=== PATIENT | male | born 1955 | race Caucasian/White ===

== ENCOUNTER 2018-11-06 16:26 | Emergency (ER) | payer MEDICARE ==
[~2018-11-06] VITALS: Ht 167.6 cm; Wt 73.3 kg
[2018-11-06 17:03] VITALS: Ht 167.6 cm; Wt 73.3 kg
[2018-11-06] MEDS ORDERED: METHYLPREDNISOLONE 125 MG INJ IV STA (17:50)
[2018-11-06] MEDS ORDERED: IPRATROPIUM (NEB) 0.5 MG/2.5 ML AMP NEB STA (17:50)
[2018-11-06] MEDS ORDERED: ALBUTEROL 0.083% (NEB) 2.5 MG/3 ML AMP NEB STA (17:50)
[2018-11-06] MEDS ORDERED: METHYLPREDNISOLONE 125 MG INJ IM ONE (18:30)
[2018-11-06] MEDS ORDERED: PRED20TA PO (19:37)
--- NOTE | 2018-11-06 19:43 | ERD ---
ER Documentation Chief Complaint Chief Complaint SOB; HX OF COPD, EMPHYSEMA HPI 63-year-old homeless male with past medical history of COPD and emphysema, active daily smoker who presents with 3-day complaint of worsening shortness of breath and dyspnea as well as chest tightness. Typically has dry chronic cough and now cough is productive of thick yellow sputum. Patient states he is currently homeless and lives in his car and recently drove up to [facility] from [place]. Lives in [place] and was supposed to return today but did not have enough money. He otherwise denies fever, chills, nausea or vomiting, abdominal pain, urinary symptoms. Does not currently have a PMD in [place] but states he does see a doctor in [place]. He denies any alcohol or drug use. ROS All systems reviewed and are negative except as per history of present illness. Medications Home Meds Active Scripts Azithromycin* (Zithromax*) 500 Mg Tablet, 500 MG PO DAILY for 3 Days, TAB Prov:JEUDINE,GETHO PA-C 11/06/18 Prednisone* (Prednisone*) 20 Mg Tab, 40 MG PO DAILY for 5 Days, TAB Prov:JEUDINE,GETHO PA-C 11/06/18 Allergies Allergies: Coded Allergies: meperidine (Verified Allergy, Mild, 11/06/18) prednisone (Verified Allergy, Mild, 11/06/18) Uncoded Allergies: SULFA (Allergy, Unknown, 11/06/18) PMhx/Soc History of Surgery: Yes (hernia) Hx Respiratory Disorders: Yes (emphysema) Hx Miscellaneous Medical Probl: Yes Hx Alcohol Use: No Hx Substance Use: No Hx Tobacco Use: Yes Smoking Status: Current every day smoker FmHx Family History: No diabetes, No coronary disease, No other Physical Exam Vitals Vital Signs Date Temp Pulse Resp B/P (MAP) Pulse Ox O2 O2 Flow FiO2 Time Delivery Rate 11/06/18 98.1 98 22 129/81 95 Room Air 20:03 (97) 11/06/18 92 20 97 Nasal 3.0 18:18 Cannula 11/06/18 76 100 Nasal 3.0 17:44 Cannula 11/06/18 98.2 89 36 116/56 97 17:03 (76) Physical Exam I have reviewed the triage vital signs. Const: thin, desheveled, ill appearing, appears older then stated age, mild distress Eyes: PERRL, no conjunctival injection HENT: NCAT, Neck supple without meningismus CV: RRR, Warm, well-perfused extremities RESP: Prominent wheezing, rhonci to b/l lung rodriguez, no rales, normal effort, GI: soft, non-tender, non-distended, no masses MSK: No gross deformities appreciated Skin: Warm, dry. No rashes Neuro: grossly non focal Psych: Appropriate mood and affect. Results 24 hrs Current Medications Medications Dose Sig/Anselmo Start Time Status Last (Trade) Ordered Route PRN Stop Time Admin Dose Reason Admin Albuterol 5 mg ONCE STAT 11/06/18 DC 11/06/18 (Proventil NEB 17:50 11/06/18 18:24 0.083% (Neb)) 18:04 Ipratropium 1.5 mg ONCE STAT 11/06/18 DC 11/06/18 [place] NEB 17:50 11/06/18 18:23 (Atrovent 18:04 0.02% (Neb)) 125 mg ONCE STAT 11/06/18 DC Methylprednis IV 17:50 11/06/18 olone Sodium 18:17 Succinate (Solu-Medrol) 125 mg ONCE ONCE 11/06/18 DC 11/06/18 Methylprednis IM 18:30 11/06/18 18:31 olone Sodium 18:31 Succinate (Solu-Medrol) Procedures/MDM 63-year-old male with long-standing COPD who presents with + cough and sputum change + wheezing + SOB in prior smoker w known COPD history c/w COPD exacerbation. The patient appears to be suffering from a moderate exacerbation of COPD. Pt has never been intubated for COPD exacerbation. Documented allergy to prednisone. When asked what type of reaction he had to prednisone patient states he had bone pain. He denies any airway compromise or angioedema associated with prednisone use. Explained to him in detail that he will be discharged with a short course of prednisone that he should experience any airway compromise or have any allergic type reaction while taking prednisone that he should immediately stop and presented to ED. Patient resting full understanding. Based on the history, exam, and any testing done, I dont suspect any other cause emergency cause of respiratory distress, such as, but not limited to, pneumonia, coronary syndrome, congestive heart failure, pulmonary embolism, or pneumothorax. ED course: Cxr without evidence of pneumonia EKG SR 80 BPM without ischemic changes Plan: Treated the patient with bronchodilators, steroids, then reassessed. On reassessment with reported improvement in symptoms. Less wheezing on exam. oxygen saturations stable. He appears comfortable and states he wants to go home. Will discharge with short course of steroids, Azithromycin,continue to utilized his inhalers, PMD follow up Strict return precautions explained to patient in detail DISPOSITION PLAN: We discussed follow up with the patient's primary care doctor within 24 to 48 hours. Patient counseled regarding my diagnostic impression and care plan. Prior to discharge all questions answered. Pt agrees with treatment plan and understands strict return precautions. Precautionary instructions provided including instructions to return to the ER if not improving or for any worsening or changing symptoms or concerns. Departure Diagnosis: Primary Impression: COPD with exacerbation Condition: Stable Patient Instructions: Care for COPD, Treatments for COPD, Copd Flare Referrals: [facility] YOU HAVE RECEIVED A MEDICAL SCREENING EXAM AND THE RESULTS INDICATE THAT YOU DO NOT HAVE A CONDITION THAT REQUIRES URGENT TREATMENT IN THE EMERGENCY DEPARTMENT. FURTHER EVALUATION AND TREATMENT OF YOUR CONDITION CAN WAIT UNTIL YOU ARE SEEN IN YOUR DOCTORS OFFICE WITHIN THE NEXT 1-2 DAYS. IT IS YOUR RESPONSIBILITY TO MAKE AN APPOINTMENT FOR FOLOW-UP CARE. IF YOU HAVE A PRIMARY DOCTOR --you should call your primary doctor and schedule an appointment IF YOU DO NOT HAVE A PRIMARY DOCTOR YOU CAN CALL OUR PHYSICIAN REFERRAL HOTLINE AT IF YOU CAN NOT AFFORD TO SEE A PHYSICIAN YOU CAN CHOSE FROM THE FOLLOWING [facility] [address] [facility]. [facility] [address] [facility]. [facility] [address] [facility] [facility] [address] [facility] [facility] [address] [facility]. [facility]. [address] Additional Instructions: Call your primary care doctor TOMORROW for an appointment during the next 2-3 days.See the doctor sooner or return here if your condition worsens before your appointment time. DEEPTI HILL PA-C Nov 06, 2018 19:43
[2018-11-06] MEDS ORDERED: AZIT500T3 PO (19:44)
[2018-11-06 20:03] VITALS: BP 129/81; PULSE 98; RESP 22
== END 2018-11-06 20:05 | disposition home or self-care (01) ==
LOC: FTE 16:26
DX: J44.1 Chronic obstructive pulmonary disease with (acute) exacerbation (principal); F17.210 Nicotine dependence, cigarettes, uncomplicated
CPT/HCPCS: 71046; 87400; 93005; 94644; 96372; 99285; J2930; 86756